=== PATIENT | male | born 1965 ===

== ENCOUNTER 2018-06-22 14:07 | Inpatient (IN) | payer MEDICARE, BC ==
[2018-06-22 14:07] VITALS: BMI 29.6
[2018-06-22] MEDS ORDERED: Sodium Chloride 0.9% 1,000 ML IV STA (15:16)
--- NOTE | 2018-06-22 15:19 | ED PDOC ---
HPI: Psych/Substance Abuse Time Seen by Provider: 06/22/18 15:15 Chief Complaint (Nursing): Psychiatric Evaluation History Per: Patient Onset/Duration Of Symptoms: Unknown Current Symptoms Are (Timing): Still Present Suicide/Self Injury Attempted (Context): None Modifying Factor(s): Other (Xanax) Severity: Moderate Associated Symptoms: Depression. denies: Suicidal Thoughts, Suicidal Plan Involuntary Hold By: None Additional Complaint(s): Referred by PMD for detox. Pt admits to taking Xanax and Percocet over extended period of time to help him deal with stress of passing. Denies overdose. Also denies suicidal ideation. Last dose was just prior to coming to emergency department. Past Medical History Vital Signs: Last Vital Signs Temp 98.4 F 06/22/18 14:53 Pulse 90 06/22/18 14:53 Resp 16 06/22/18 14:53 BP 141/92 H 06/22/18 14:53 Pulse Ox 99 06/22/18 14:53 - Medical History PMH: Anxiety, Back Problems, Depression, HTN, Hypercholesterolemia, Chronic Pain - Family History Family History: States: Unknown Family Hx, Diabetes - Immunization History Hx Tetanus Toxoid Vaccination: No Hx Influenza Vaccination: No Hx Pneumococcal Vaccination: No - Home Medications Home Medications: Ambulatory Orders Medication Instructions Recorded Anti Anxiety Meds 05/16/17 Antihypertensive Med 05/16/17 Cholesterol Med 05/16/17 Ibuprofen [Motrin] 600 mg PO Q6 PRN #20 tab 05/16/17 Oseltamivir Phosphate [Tamiflu] 75 mg PO BID #10 capsule 05/16/17 Water Pills 05/16/17 - Allergies Allergies/Adverse Reactions: Allergies Allergy/AdvReac Type Severity Reaction Status Date / Time No Known Allergies Allergy Verified 06/22/18 14:52 Review of Systems ROS Statement: Except As Marked, All Systems Reviewed And Found Negative Psych: Positive for: Depression. Negative for: Suicidal ideation Physical Exam - Reviewed Nursing Documentation Reviewed: Yes Vital Signs Reviewed: Yes - Physical Exam Appears: Positive for: Non-toxic, No Acute Distress Head Exam: Positive for: ATRAUMATIC, NORMAL INSPECTION, NORMOCEPHALIC Skin: Positive for: Normal Color, Warm, DRY Eye Exam: Positive for: EOMI, Normal appearance, PERRL ENT: Positive for: Normal ENT Inspection Neck: Positive for: Normal, Painless ROM Cardiovascular/Chest: Positive for: Regular Rate, Rhythm Respiratory: Positive for: CNT, Normal Breath Sounds Gastrointestinal/Abdominal: Positive for: Normal Exam, Soft Back: Positive for: Normal Inspection Extremity: Positive for: Normal ROM Neurological/Psych: Positive for: Alert, Normal Tone. Negative for: Awake (Sleepy arousable), Motor/Sensory Deficits - Laboratory Results Result Diagrams: 06/22/18 16:34 06/22/18 16:20 - ECG O2 Sat by Pulse Oximetry: 99 Medical Decision Making Medical Decision Making: Medically stable for psychiatric admission Disposition - Clinical Impression Clinical Impression: Depression - Patient ED Disposition Is Patient to be Admitted: Yes - Disposition Disposition Time: 20:13 Condition: FAIR Forms: my[employer]amb[employer] (Hungarian) - Pt Status Changed To: Hospital Disposition Of: Inpatient - Admit Certification Admit to Inpatient:: After my assessment, the patient will require hospitalization for at least two midnights. This is because of the severity of symptoms shown, intensity of services needed, and/or the medical risk in this patient being treated as an outpatient. - POA Present On Arrival: None
[2018-06-22 16:35] LABS: BASO # 0.1 K/uL (0.0-0.2); BASO % 0.7 % (0.0-2.0); EOS # 0.1 K/uL (0.0-0.7); EOS % 1.3 % (0.0-4.0); LYMPH # 3.7 K/uL (1.0-4.3); LYMPH % 33.9 % (20.0-40.0); MEAN CELL VOLUME 88.4 fl (80.0-94.0); MEAN PLATELET VOLUME 9.2 fl (7.2-11.7); MONO # 0.8 K/uL (0.0-0.8); MONO % 7.5 % (0.0-10.0); NEUT # 6.2 K/uL (1.8-7.0); NEUT % 56.6 % (50.0-75.0); NRBC % 0.1 % (0.0-0.0); RBC 4.66 Mil/uL (4.40-5.90); RED CELL DISTRIBUTION WIDTH 12.6 % (11.5-14.5)
[2018-06-22 16:53] LABS: ALB/GLOB RATIO 1.3 (1.0-2.1); ALBUMIN 4.4 g/dL (3.5-5.0); ALT/SGPT 41 U/L (21-72); AST/SGOT 31 U/L (17-59); BLOOD UREA NITROGEN 18 mg/dl (9-20); CALCIUM 9.9 mg/dL (8.4-10.2); GFR NON-AFRICAN AMERICAN > 60
--- NOTE | 2018-06-22 17:36 | RAD ---
Date of service: 06/22/2018 HISTORY: Cough. COMPARISON: No prior. FINDINGS: LUNGS: No active pulmonary disease. PLEURA: No significant pleural effusion identified, no pneumothorax apparent. CARDIOVASCULAR: No atherosclerotic calcification present No radiographic findings to suggest acute or significant cardiovascular disease. OSSEOUS STRUCTURES: No significant abnormalities. VISUALIZED UPPER ABDOMEN: Normal. OTHER FINDINGS: None. IMPRESSION: No active disease.
[2018-06-22 21:26] VITALS: O2SAT 96
[2018-06-22 21:30] LABS: BARBITURATES, UR NEGATIVE (NEGATIVE); BENZODIAZEPINES, UR POSITIVE (NEGATIVE); OPIATES, UR NEGATIVE (NEGATIVE); PHENCYCLIDINE, UR NEGATIVE (NEGATIVE)
[2018-06-22] MEDS ORDERED: DiphenhydrAMINE 50 mg/ml Inj IM PRN (21:57)
[2018-06-22] MEDS ORDERED: Magnesium Hydroxide Susp 30 ml UD PO PRN (21:57)
[2018-06-22] MEDS ORDERED: Alum-Mag Hydrox-Simethicone Susp (30 mL) PO PRN (21:57)
--- NOTE | 2018-06-22 22:18 | PCM.BM ---
<Tess Trejo - Last Filed: 06/22/18 22:16> Treatment Plan Problems - Problems identified on initial assessmt Hoplessness/Helplessness Date Initiated: 06/22/18 Time Initiated: 22:16 Assessment reference: NA Status: Active Altered Sleep Patterns Date Initiated: 06/22/18 Time Initiated: 22:17 Assessment reference: NA Status: Active Treatment assets and liabiliti Patient Assests: cooperative, self-reliant, ADL independent, negotiates basic needs Patient Liabilities: financial problems, poor support system, substance abuse, medical problems, other (recent loss- 1 month ago) - Milieu Protocol Maintain good personal hygiene: daily Encourage regular showers, every shift Remind patient to perform daily oral care, every shift Assist patient to perform ADL's Conduct patient checks and document Observation sheet: Q15 minutes Maintain personal safety: every shift Educate patient to report safety concerns to staff, every shift Monitor environment for contraband/sharps Medication safety: Monitor for expected outcome, potential side effects: every shift, Assess barriers to learning: every shift, Assess readiness for medication education: every shift <Key Dumont M - Last Filed: 06/23/18 12:35> Family Contact - Outside Agency Dr. Carlos Briscoe Care involent: Information-sharing Agency contact number: [phone] - Goals for Treatment Patient goals for treatment: Pt will improve overall mood. Pt will be free of suicidal thoughts. Pt will develop strategies to reduce symptoms of anxiety. Pt will learn 2 ways of coping with routine stressors. Pt will participate in clinical and activity groups. Pt will be compliant with prescribed medications. Discharge/Continuing Care - Education Needs Education Needs: Patient Medication, Patient Diagnosis/Disease Process, Patient Coping Skills, Patient Community resources, Patient Activities of Daily Living, Patient Uses of Medical Equipment, Patient Health Practices/Safety, Patient Personal Hygiene/Grooming, Patient Aftercare Safety Plan - Discharge Discharge Criteria: Tolerates medication w/o severe side effects, Free of Suicidal thoughts, Normal sleep pattern, Ability to care for self, Reduction of target symptoms, Other (Free of anxiety symptoms) Discharge to:: Home - Additional Comments 06/23/18 12:01 Pt seen and discussed in team meeting. Reason for hospitalization reviewed and discussed. Pt reported he was referred tot he ED by his outpatient provider, DR. Carlos Briscoe MD. Pt reported that he hospitalized due to a "misunderstanding." Pt reported that he is seeking assistance to reduce his Xanax intake. Pt reported that his main goal for help is "lower dosage of medication." Pt reported that eh is prescribed 6mg of Xanax daily; however, he was not taking his Xanax but rather using his spouse's prescription. Pt reported that his spouse RX is lower dosage. Pt reported that he is looking for detox. Pt denied current SI and HI. When assessed for SI prior to ED arrival, pt stated "not really." Pt reported feeling depressed and and lonely due to recent loss of his spouse. Pt was tearful when talking about his spouse. Pt also reported that he uses Percocet for herniated discs and it's prescribed by his pain management doctor. Pt's u-tox was positive for cocaine; pt reported he used cocaine only once. Pt reported Dr. Briscoe is not aware of his cocaine use and does not wish for him to be informed of same. Pt reported that he and his daughter had a verbal altercation last week and she asked him to leave her home. Pt is currently homeless. Pt's current treatment plan reviewed and discussed. Pt's medications reviewed. Attending psychiatrist reported that she will be meeting with pt at a later time to further review and discuss treatment plan. Pt verbalized agreement. SW on 3NP to continue to follow case. - Treatment Team Participation Discussed with Family/SO: No Was Patient/Family/SO present at Treatment Team Meeting: Yes <Silvana Dejesus - Last Filed: 06/23/18 15:13> - Diagnosis (1) Major depression Status: Acute Interventions: 06/23/18 15:12 psychotherpy, pharmacotherapy (2) Sedative abuse Status: Acute Interventions: 06/23/18 15:13 motivational therapy (3) Cocaine abuse Status: Acute Interventions: 06/23/18 15:13 motivational therapy
--- NOTE | 2018-06-23 15:25 | PCM.PSYCH ---
Initial Psychiatric Evaluation - Initial Psychiatric Evaluation Type of Admission: Voluntary Legal Status: Capacity Chief Complaint (in patient's own words): I feel hopeless since I lost my History of Present Illness and Precipitating Events: pt is 53 ys old male with previous diagnosi of depression, anxiety, sedative anxiolytic dependence referred to ER by his psychiatrist due to increased depression and anxiety , with increased use of benzodiazepines pt reported has been feeling increasingly depressed and anxious for the past month after loosing his of 35 years, pt also had to leave the apartment has been having conflicts with his daughter and poor support from his sibilings, pt started using more than prescribed xanax and also starting abusing cocaine on the unit pt presenting with depressed mood, reported feeling anxious , hopeless and helpless, denied active suicidal ideation on the unit denied perceptual disturbances Current Medications: Active Medications Generic Name Dose Route Start Last Admin Trade Name Freq PRN Reason Stop Dose Admin Acetaminophen 650 mg 06/22/18 21:57 06/23/18 05:42 Tylenol 325mg Tab PO 650 mg Q4 PRN Administration Pain, moderate (4-7) Al Hydrox/Mg Hydrox/Simethicone 30 ml 06/22/18 21:57 Maalox Plus 30 Ml PO Q4 PRN Dyspepsia Clonazepam 1 mg 06/23/18 17:00 Klonopin PO TID SEBAS Diphenhydramine HCl 50 mg 06/22/18 21:57 Benadryl IM Q6 PRN Extrapyramidal S/S Unable PO Diphenhydramine HCl 50 mg 06/22/18 21:57 Benadryl PO Q6 PRN Extrapyramidal Symptoms Diphenhydramine HCl 50 mg 06/22/18 22:22 06/22/18 22:28 Benadryl PO 50 mg HS PRN Administration Sleep Gabapentin 200 mg 06/23/18 17:00 Neurontin PO TID SEBAS Haloperidol 5 mg 06/22/18 21:57 Haldol PO Q4 PRN Agitation Haloperidol Lactate 5 mg 06/22/18 21:57 Haldol IM Q4 PRN Agitation, Unable to Take PO Loperamide HCl 2 mg 06/23/18 11:45 06/23/18 12:43 Imodium PO 2 mg Q6 PRN Administration Diarrhea Lorazepam 2 mg 06/22/18 21:57 Ativan IM Q4 PRN Anxiety/Agitation,Unable PO Lorazepam 1 mg 06/22/18 21:57 06/23/18 11:46 Ativan PO 1 mg Q6 PRN Administration Anxiety/Agitation Magnesium Hydroxide 30 ml 06/22/18 21:57 Milk Of Magnesia PO HS PRN Constipation Mirtazapine 7.5 mg 06/23/18 22:00 Remeron PO HS SEBAS Past Psychiatric History - Past Psychiatric History Explanation of prior treatment: pt has one previous hospitalization at [facility] a year ago for detox History of ETOH/Drug Use: sedatives and cocaine Pertinent Medical Hx (Current Medical&Sleep Prob, Allergies): Allergies Allergy/AdvReac Type Severity Reaction Status Date / Time No Known Allergies Allergy Verified 06/22/18 14:52 Anti Anxiety Meds 05/16/17 Antihypertensive Med 05/16/17 Cholesterol Med 05/16/17 Mental Status Examination - Personal Presentation Personal Presentation: Looks stated age - Affect Affect: Constricted, Depressed - Motor Activity Motor Activity: Psychomotor Retardation - Reliability in Providing Information Reliability in Providing Information: Fair - Speech Speech: Relevant - Mood Mood: Depressed, Anxious - Formal Thought Process Formal Thought Process: Circumstantial - Obsessions/Compulsions Obsessions: No Compulsions: No - Cognitive Functions Orientation: Person, Place, Situation Sensorium: Alert Attention/Concentration: Attentive Abstract Thinking: [place] Judgement: Imparied, as evidence by: Poor judgement, Imparied, as evidence by: Lack of insight into illness - Risk Risk: Withdrawal, Diminished functioning - Strength & Assets Inventory Strength & Assets Inventory: Life experience Additional comments: limited social support DSM 5 DX - DSM 5 DSM 5 Diagnosis: major depression generalized anxiety sedative anxiolytic abuse cocaine abuse - Recommended/Plan of Treatment Treatment Recommendations and Plan of Treatment: pt has been prescribed xanax 2mg tid will start klonopin 1mg tid and down taper gradually to avoid withdrawal s ymptoms start neurontin 200mg tid for anxiety and to avoid seizures remeron 7.5mg qhs for depression and insomnia motivational group and supportive therapy internal medicine consult
--- NOTE | 2018-06-23 15:41 | CP.PCM.CON ---
History of Present Illness - History of Present Illness History of Present Illness: 53 yo male with history of Depression admitted to psyche unit because of worsening depression. Review of Systems - Review of Systems All systems: reviewed and no additional remarkable complaints except (aside from those mentioned above, 12 point system review were negative by me) Past Patient History - Infectious Disease Hx of Infectious Diseases: None - Tetanus Immunizations Tetanus Immunization: Unknown - Past Medical History & Family History Past Medical History?: Yes - Past Social History Smoking Status: Heavy Smoker > 10 Cigarettes Daily Chewing Tobacco Use: No Cigar Use: No Alcohol: None Drugs: Denies - CARDIAC Hx Hypercholesterolemia: Yes Hx Hypertension: Yes - PULMONARY Hx Tuberculosis: No - NEUROLOGICAL HX Cerebrovascular Accident: No Hx Seizures: No - HEENT Hx HEENT Problems: No - RENAL Hx Chronic Kidney Disease: No - ENDOCRINE/METABOLIC Hx Endocrine Disorders: No - HEMATOLOGICAL/ONCOLOGICAL Hx Cancer: No Hx Human Immunodeficiency Virus (HIV): No - INTEGUMENTARY Hx Dermatological Problems: No - MUSCULOSKELETAL/RHEUMATOLOGICAL Hx Falls: No (unknown) - GASTROINTESTINAL Hx Gastrointestinal Disorders: No - GENITOURINARY/GYNECOLOGICAL Hx Sexually Transmitted Disorders: No - PSYCHIATRIC Hx Substance Use: Yes (cocaine, bzo) - SURGICAL HISTORY Hx Surgeries: No - ANESTHESIA Hx Anesthesia: (unknown, non verbal) Meds Allergies/Adverse Reactions: Allergies Allergy/AdvReac Type Severity Reaction Status Date / Time No Known Allergies Allergy Verified 06/22/18 14:52 - Medications Medications: Current Medications Acetaminophen (Tylenol 325mg Tab) 650 mg PO Q4 PRN PRN Reason: Pain, moderate (4-7) Last Admin: 06/23/18 05:42 Dose: 650 mg Al Hydrox/Mg Hydrox/Simethicone (Maalox Plus 30 Ml) 30 ml PO Q4 PRN PRN Reason: Dyspepsia Clonazepam (Klonopin) 1 mg PO TID SEBAS Diphenhydramine HCl (Benadryl) 50 mg IM Q6 PRN PRN Reason: Extrapyramidal S/S Unable PO Diphenhydramine HCl (Benadryl) 50 mg PO Q6 PRN PRN Reason: Extrapyramidal Symptoms Diphenhydramine HCl (Benadryl) 50 mg PO HS PRN PRN Reason: Sleep Last Admin: 06/22/18 22:28 Dose: 50 mg Gabapentin (Neurontin) 200 mg PO TID SEBAS Haloperidol (Haldol) 5 mg PO Q4 PRN PRN Reason: Agitation Haloperidol Lactate (Haldol) 5 mg IM Q4 PRN PRN Reason: Agitation, Unable to Take PO Loperamide HCl (Imodium) 2 mg PO Q6 PRN PRN Reason: Diarrhea Last Admin: 06/23/18 12:43 Dose: 2 mg Lorazepam (Ativan) 2 mg IM Q4 PRN PRN Reason: Anxiety/Agitation,Unable PO Lorazepam (Ativan) 1 mg PO Q6 PRN PRN Reason: Anxiety/Agitation Last Admin: 06/23/18 11:46 Dose: 1 mg Magnesium Hydroxide (Milk Of Magnesia) 30 ml PO HS PRN PRN Reason: Constipation Mirtazapine (Remeron) 7.5 mg PO HS SEBAS Physical Exam - Constitutional Appears: No Acute Distress - Head Exam Head Exam: ATRAUMATIC - Eye Exam Eye Exam: absent: Scleral icterus - ENT Exam ENT Exam: Mucous Membranes Moist - Neck Exam Neck exam: Negative for: Meningismus - Respiratory Exam Respiratory Exam: absent: Rales, Rhonchi, Wheezes, Respiratory Distress - Cardiovascular Exam Cardiovascular Exam: REGULAR RHYTHM, +S1, +S2 - GI/Abdominal Exam GI & Abdominal Exam: Soft. absent: Tenderness - Rectal Exam Rectal Exam: Deferred - Neurological Exam Neurological exam: Alert, Oriented x3 - Psychiatric Exam Psychiatric exam: Normal Affect - Skin Skin Exam: Dry, Intact Results - Vital Signs Recent Vital Signs: Last Vital Signs Temp 97.6 F 06/22/18 22:30 Pulse 78 06/22/18 22:30 Resp 18 06/22/18 22:30 BP 152/96 H 06/22/18 22:30 Pulse Ox 96 06/22/18 22:05 - Labs Result Diagrams: 06/22/18 16:34 06/22/18 16:20 Labs: Laboratory Results - last 24 hr 06/22/18 06/22/18 06/22/18 16:20 16:34 20:30 WBC 11.0 H RBC 4.66 Hgb 14.0 Hct 41.2 MCV 88.4 MCH 30.0 MCHC 34.0 RDW 12.6 Plt Count 229 MPV 9.2 Neut % (Auto) 56.6 Lymph % (Auto) 33.9 [place] % (Auto) 7.5 Eos % (Auto) 1.3 Baso % (Auto) 0.7 Neut # (Auto) 6.2 Lymph # (Auto) 3.7 [place] # (Auto) 0.8 Eos # (Auto) 0.1 Baso # (Auto) 0.1 Sodium 141 Potassium 4.1 Chloride 109 H Carbon Dioxide 23 Anion Gap 13 BUN 18 Creatinine 0.9 Est GFR ( Amer) > 60 Est GFR (Non-Af Amer) > 60 Random Glucose 106 Hemoglobin A1c Calcium 9.9 Total Bilirubin 0.5 AST 31 ALT 41 Alkaline Phosphatase 50 Total Protein 7.7 Albumin 4.4 Globulin 3.3 Albumin/Globulin Ratio 1.3 Triglycerides Cholesterol LDL Cholesterol Direct HDL Cholesterol Thyroxine (T4) TSH 3rd Generation Urine Opiates Screen Negative Urine Methadone Screen Negative Ur Barbiturates Screen Negative Ur Phencyclidine Scrn Negative Ur Amphetamines Screen Negative U Benzodiazepines Scrn Positive U Oth Cocaine Metabols Positive H U Cannabinoids Screen Negative Alcohol, Quantitative < 10 RPR 06/23/18 06/23/18 06/23/18 06:30 06:30 06:30 WBC RBC Hgb Hct MCV MCH MCHC RDW Plt Count MPV Neut % (Auto) Lymph % (Auto) [place] % (Auto) Eos % (Auto) Baso % (Auto) Neut # (Auto) Lymph # (Auto) [place] # (Auto) Eos # (Auto) Baso # (Auto) Sodium Potassium Chloride Carbon Dioxide Anion Gap BUN Creatinine Est GFR ( Amer) Est GFR (Non-Af Amer) Random Glucose Hemoglobin A1c 4.8 Calcium Total Bilirubin AST ALT Alkaline Phosphatase Total Protein Albumin Globulin Albumin/Globulin Ratio Triglycerides 291 H Cholesterol 164 LDL Cholesterol Direct 39 HDL Cholesterol 36 Thyroxine (T4) 7.74 TSH 3rd Generation 2.56 Urine Opiates Screen Urine Methadone Screen Ur Barbiturates Screen Ur Phencyclidine Scrn Ur Amphetamines Screen U Benzodiazepines Scrn U Oth Cocaine Metabols U Cannabinoids Screen Alcohol, Quantitative RPR Nonreactive Assessment & Plan (1) Depression Status: Acute Comment: psyche is managing
--- NOTE | 2018-06-23 22:33 | CARD ---
APPROVED REPORT Date of service: 06/22/2018 EKG Measurement Heart [id number] <Conclusion> Normal sinus rhythm Normal ECG
--- NOTE | 2018-06-24 18:58 | PCM.PYCHPN ---
Psychiatric Progress Note - Psychiatric Progress Note Patient seen today, length of contact: chart reviewed case discussed with team Patient Chief Complaint: was feeling depressed went to see psychiatrist, was feeling overwhelmed was taking alprazolam feeling depressed thinking about hurt self beginning to feel a little better, team report pt adherent with plan Problems Identified/Issues Discussed: alteration in mood alteration in coping benzodiazepine dependence n Medical Problems: per chart Diagnostic Results: per per psychiatry per medicine per nursing per social work per recreational therapy DSM 5 Symptoms Update: some improvement in mood process of being weaned off of benzodiazepine Medication Change: Yes (clonazepam 1mg po am, 0.5mg po 1300 and 1mg po 1700 ) Medical Record Reviewed: Yes Consults ordered or reviewed: pt seen by hospitalist Mental Status Examination - Cognitive Function Orientation: Person, Place, Situation Attention: Poor Concentration: Poor Fund of Knowledge: Poor Decription of patient's judgement and insights: impaired - Mood Mood: Depressed, Anxious - Affect Affect: Constricted, Depressed - Speech Speech: Soft - Formal Thought Process Formal Thought Process: Circumstantial - Homicidal Ideation Homicidal Ideation: No Goal/Treatment Plan - Goal/Treatment Plan Progress Toward Problem(s) and Goals/Treatment Plan: inpt milieu decrease clonazepam to 1mg po 0900, 0.5mg po 1300 and 1mg po 1700 attempt to wean pt gradually off of benzodiazepine adjust other medications according to clinical status\ discharge planning in progress Estimated Date of D/C: 06/22/18 - Smoking Cessation Smoking Cessation Initiated: Yes
--- NOTE | 2018-06-25 15:22 | PCM.PYCHPN ---
Psychiatric Progress Note - Psychiatric Progress Note Patient seen today, length of contact: chart reviewed case discussed with team Patient Chief Complaint: reports feeling calmer, sleeping improving, denies s/s w/d benzodizepine, staff report pt seen about unit, adherent with treatment,denies desire to harm slef s Problems Identified/Issues Discussed: alteration in mood alteration in coping benzodiazepine dependence n Medical Problems: per chart Diagnostic Results: per per psychiatry per medicine per nursing per social work per recreational therapy DSM 5 Symptoms Update: improving anxiety denies s/s benzodizepine withdrawal Medication Change: Yes (d/c 1300 clonozepam, maintain bid 1mg clonazpeam) Medical Record Reviewed: Yes Consults ordered or reviewed: pt being followed by hospitalist Mental Status Examination - Cognitive Function Orientation: Person, Place, Situation Attention: Poor Concentration: Poor Fund of Knowledge: Poor Decription of patient's judgement and insights: impaired - Mood Mood: Depressed, Anxious - Affect Affect: Constricted, Depressed - Speech Speech: Soft - Formal Thought Process Formal Thought Process: Circumstantial - Homicidal Ideation Homicidal Ideation: No Goal/Treatment Plan - Goal/Treatment Plan Progress Toward Problem(s) and Goals/Treatment Plan: inpt milieu discontinue 1300 clonazepam maintain clonazepam 1mg po bid (team to continue to assess attempt further weaning per clincial status)-reviewed with pt verbally agreable to plan ne adjust other medications according to clinical status\ discharge planning in progress Estimated Date of D/C: 06/22/18 - Smoking Cessation Smoking Cessation Initiated: No Reason for not providing: defers
--- NOTE | 2018-06-26 14:39 | PCM.PYCHPN ---
Psychiatric Progress Note - Psychiatric Progress Note Patient seen today, length of contact: chart reviewed case discussed with team Patient Chief Complaint: I still have hard time falling asleep Problems Identified/Issues Discussed: pt evaluated , reported feeling less depressed and less anxious, continues to report poor sleep with early insomnia, discussed increasing remeron and adding trazadone, motivational therapy provided in reference to cocaine and sedative abuse, pt motivated to start outpatient therapy denied any current suicidal or homicidal ideation denied perceptual disturbances Medical Problems: pt has one previous hospitalization at [facility] a year ago for detox DSM 5 Symptoms Update: generalized anxiety disorder depression sedative abuse cocaine abuse Medication Change: Yes (decrease klonopin) Medical Record Reviewed: Yes Mental Status Examination - Cognitive Function Orientation: Person, Place, Situation Attention: WNL Concentration: WNL Fund of Knowledge: WNL Decription of patient's judgement and insights: partial insight fair judgment - Mood Mood: Depressed, Anxious - Affect Affect: Constricted, Depressed - Speech Speech: Soft - Formal Thought Process Formal Thought Process: Circumstantial - Suicidal Ideation Suicidal Ideation: No - Homicidal Ideation Homicidal Ideation: No Goal/Treatment Plan - Goal/Treatment Plan Need for Continued Stay: Severe depression anxiety, Discharge may exacerbated symptoms Progress Toward Problem(s) and Goals/Treatment Plan: decrease klonopin 0.25mg tid neurontin 200mg tid for anxiety and to avoid seizures increase remeron 15mg qhs for depression and insomnia trazodone 50mg qhs motivational group and supportive therapy Estimated Date of D/C: 06/22/18
[2018-06-26 18:29] VITALS: BP 142/92; PULSE 81; RESP 19; TEMP 98.4
--- NOTE | 2018-06-27 09:55 | PCM.PYCHDC ---
Mental Status Examination - Mental Status Examination Orientation: Person, Place, Situation, Time Memory: Intact Mood: Neutral Affect: Broad Speech: Appropriate Attention: WNL Concentration: WNL Association: WNL Fund of Knowledge: WNL Formal Thought Process: No Impairment Description of patient's judgement and insight: partial insight fair judgment Psychotic Thoughts and Behaviors: pt denied any perceptual disturbances, non elicited Suicidal Ideation: No Current Homicidal Ideation?: No Discharge Summary - Discharge Note Reason for Hospitalization: pt is 53 ys old male with previous diagnosi of depression, anxiety, sedative anxiolytic dependence referred to ER by his psychiatrist due to increased depression and anxiety , with increased use of benzodiazepines pt reported has been feeling increasingly depressed and anxious for the past month after loosing his of 35 years, pt also had to leave the apartment has been having conflicts with his daughter and poor support from his sibilings, pt started using more than prescribed xanax and also starting abusing cocaine on the unit pt presenting with depressed mood, reported feeling anxious , hopeless and helpless, denied active suicidal ideation on the unit denied perceptual disturbances Consultations:: List each consultation separately and include: 1. Reason for request. 2. Findings. 3. Follow-up Summary of Hospital Course include:: 1. Description of specific treatment plan utilized for patients during their course of treatmen. 2. Summarize the time- course for resolution of acute symptoms and/or regressed behaviors. 3. Describe issues identified and worked on during hospitalization. 4. Describe medication utilized. 5. Describe medical problems identified and treated. 6. Reassessment of suicide risk Summary of Hospital Course: pt on admission was started on klonopin 1mg tid/ to avoid symptoms and signs of benzodiazepine withdrawal pt was also placed on neurontin 300mg tid for anxiety remeron 15mg qhs for depression pt was compliant with treatment, attended groups, no reported side effects of medications, on discharge mental status was stable, pt denied any suicidal or homicida ideation denied perceptual disturbances' follow up arranged by social psychologist at [facility] on july 04 - Diagnosis (1) Major depression Current Visit: Yes Status: Acute (2) Sedative abuse Current Visit: Yes Status: Acute (3) Cocaine abuse Current Visit: Yes Status: Acute - Final Diagnosis (DSM 5) Condition upon Discharge: FAIR DSM 5: generalized anxiety disorder depression cocaine abuse sedative abuse Disposition: HOME/ ROUTINE Prescriptions/Medication Reconciliation: clonazePAM [Klonopin] 0.5 mg PO BID #30 tab Gabapentin [Neurontin] 300 mg PO TID 15 Days #45 cap Mirtazapine [Remeron] 15 mg PO HS 15 Days #15 tab traZODone [Desyrel] 50 mg PO HS 15 Days #15 tab
== END 2018-06-27 10:00 | disposition home or self-care (01) | DRG 881 ==
LOC: H.ER 14:07 → H.ERHOLD 20:12 → H.PSYCH 21:50
PROVIDERS: ADMIT Psychiatry & Neurology Psychiatry; ATTEND Psychiatry & Neurology Psychiatry
PROC: GZHZZZZ Group Psychotherapy (ICD-10-PCS; principal; 2018-06-22)
PROC: GZ58ZZZ Individual Psychotherapy, Cognitive-Behavioral (ICD-10-PCS; 2018-06-22)
PROC: HZ52ZZZ Individual Psychotherapy for Substance Abuse Treatment, Cognitive-Behavioral (ICD-10-PCS; 2018-06-22)
DX: F32.9 Major depressive disorder, single episode, unspecified (principal); F13.20 Sedative, hypnotic or anxiolytic dependence, uncomplicated; F41.1 Generalized anxiety disorder; F14.10 Cocaine abuse, uncomplicated; I10 Essential (primary) hypertension; E78.00 Pure hypercholesterolemia, unspecified; G47.00 Insomnia, unspecified; F17.210 Nicotine dependence, cigarettes, uncomplicated; G89.29 Other chronic pain